=== PATIENT | male | born 1940 | race Caucasian/White ===

== ENCOUNTER 2016-09-03 14:20 | Outpatient (CLI) | payer MEDICARE | END 2016-09-03 14:21 | disposition short-term general hospital (02) | LOC: EMS 14:20 | PROVIDERS: ATTEND Surgery | DX: R41.82 Altered mental status, unspecified (principal); R32 Unspecified urinary incontinence | CPT/HCPCS: A0425; A0427; A0888 ==

== ENCOUNTER 2017-12-25 20:06 | Outpatient (CLI) | payer MEDICARE | END 2017-12-25 20:07 | disposition short-term general hospital (02) | LOC: EMS 20:06 | PROVIDERS: ATTEND Surgery | DX: R07.81 Pleurodynia (principal); W18.39XA Other fall on same level, initial encounter; Y93.E2 Activity, laundry; Y92.008 Other place in unspecified non-institutional (private) residence as the place of occurrence of the external cause | CPT/HCPCS: A0425; A0429 ==

== ENCOUNTER 2018-12-25 11:23 | Outpatient (CLI) | payer MEDICARE | END 2018-12-25 11:24 | disposition E | LOC: EMS 11:23 | PROVIDERS: ATTEND Surgery ==